=== PATIENT | male | born 1960 | race Two or more races ===

== ENCOUNTER → 2023-06-08 08:07 | Outpatient (REF) | payer OTHER, SELFPAY | LOC: DHCBC/DCA 08:07 | PROVIDERS: ATTENDING PHYSICIAN Internal Medicine Cardiovascular Disease; FAMILY PHYSICIAN Nurse Practitioner Family | DX: I25.10 Atherosclerotic heart disease of native coronary artery without angina pectoris (principal); R06.09 Other forms of dyspnea | CPT/HCPCS: 78452; 93017; A9500 ==

== ENCOUNTER → 2023-06-23 06:30 | Day surgery (SDC) | payer OTHER, SELFPAY | LOC: GI 06:30 | PROVIDERS: ATTENDING PHYSICIAN Internal Medicine Gastroenterology | DX: Z12.11 Encounter for screening for malignant neoplasm of colon (principal); D12.5 Benign neoplasm of sigmoid colon; K57.30 Diverticulosis of large intestine without perforation or abscess without bleeding; K64.8 Other hemorrhoids; Z86.010 Personal history of colon polyps | CPT/HCPCS: 45385; 88305 ==

== ENCOUNTER → 2024-03-07 13:01 | Day surgery (SDC) | payer MEDICARE, SELFPAY ==
[2024-03-07 15:22] LABS: Hematocrit 42.9 % (39.0-52.0); Mean Corpuscular Hgb 31.3 pg (27.0-31.0); Mean Corpuscular Volume 89.4 fL (80.0-94.0); Mean Platelet Volume 10.1 fL (7.4-10.4); Platelet Count 179 10^3/uL (130-400); Red Cell Dist. Width 11.9 % (11.5-14.5); White Blood Cell Count 12.9 10^3/uL (4.8-10.8)
[2024-03-07 16:40] LABS: ALT (SGPT) 42 U/L (0-50); AST (SGOT) 32 U/L (17-59); Albumin 4.8 g/dl (3.5-5.0); Alkaline Phosphatase 94 U/L (38-126); Blood Urea Nitrogen 20 mg/dl (9-20); Calcium 9.6 mg/dl (8.4-10.2); Carbon Dioxide 28 mmol/L (22-30); Chloride 98 mmol/L (98-107); Glucose 91 mg/dl (70-99); Potassium 4.5 mmol/L (3.5-5.1); Sodium 137 mmol/L (135-145); Total Bilirubin 1.4 mg/dl (0.2-1.3); eGFR > 60.00
== END ==
LOC: SDSPAT 13:01
PROVIDERS: ATTENDING PHYSICIAN Orthopaedic Surgery Orthopaedic Surgery of the Spine; FAMILY PHYSICIAN Nurse Practitioner Family; REFERRING PHYSICIAN Internal Medicine Cardiovascular Disease
DX: Z01.810 Encounter for preprocedural cardiovascular examination (principal); Z01.812 Encounter for preprocedural laboratory examination; Z01.818 Encounter for other preprocedural examination; R00.1 Bradycardia, unspecified
CPT/HCPCS: 93005; 36415; 80053; 85027; 87070

== ENCOUNTER 2024-03-20 06:21 | Day surgery (SDC) | payer MEDICARE, SELFPAY ==
[2024-03-07 13:39] VITALS: BMI 26.0
[2024-03-13 15:03] VITALS: BMI 26.0
[2024-03-20] VITALS (19 sets, daily range): BP systolic 40–144; BP diastolic 51–83; BMI 26.0
[2024-03-20] MEDS: NORMOSOL-R/PLASMALYTE-A 1000 IV ×3 (07:45→23:55)
[2024-03-20] MEDS: SKELAXIN 800 MG PO ×2 (08:00→17:08)
[2024-03-20] MEDS: CELEBREX 200 MG PO (08:01)
[2024-03-20] MEDS: TYLENOL 1000 MG PO ×2 (08:01→17:07)
[2024-03-20] MEDS: LYRICA 150 MG PO (08:01)
--- NOTE | 2024-03-20 12:13 | W.DS.TRANS ---
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
-
Discharge Instructions:
Sleep Apnea Risk Low
Discharge Diagnosis/Procedures L4-5 lami psf 03/20/24
Diet As tolerated
Activity No strenuous activity
Driving Restrictions No driving
Instructions:
Stand-Alone Forms: [facility]
Changes to Home Medications: Yes
Discharge Medications:
DC Medications w/original date entered in [employer]
aspirin 81 mg chewable tablet 81 mg PO DAILY 06/28/22
atorvastatin 40 mg tablet 40 mg PO HS 03/13/24
ezetimibe 10 mg tablet 10 mg PO DAILY 03/13/24
Saccharomyces boulardii 250 mg capsule (Florastor) 250 mg PO BID #1 cap 03/20/24
acetaminophen 325 mg tablet (Tylenol) 650 mg (2 x 325 mg) PO QID #1 tab 03/20/24
cephalexin 500 mg capsule 500 mg PO QID infection prevention #20 caps 03/20/24
dexamethasone 4 mg tablet 4 mg PO BID inflammation #6 tabs 03/20/24
docusate sodium 100 mg capsule (Colace) 100 mg PO BID stool softner #1 cap 03/20/24
gabapentin 300 mg capsule 300 mg PO HS sleep/pain #10 caps 03/20/24
magnesium hydroxide 400 mg/5 mL oral suspension (Milk of Magnesia) 30 ml PO HS PRN Constipation #1 mL 03/20/24
ondansetron 4 mg disintegrating tablet 4 mg PO Q6H PRN n/v #20 tabs 03/20/24
oxycodone 5 mg tablet 5 mg PO Q6H PRN 1 tab moderate pain, 2 tabs severe pain #30 tabs 03/20/24
ranolazine 500 mg tablet,extended release,12 hr 500 mg PO BID 03/20/24
sennosides 8.6 mg tablet (Senokot) 17.2 mg (2 x 8.6 mg) PO BID laxative #2 tabs 03/20/24
Home Medication Changes
cephalexin 500 mg capsule 500 mg PO QID infection prevention #20 caps 03/20/24
dexamethasone 4 mg tablet 4 mg PO BID inflammation #6 tabs 03/20/24
docusate sodium 100 mg capsule (Colace) 100 mg PO BID stool softner #1 cap 03/20/24
gabapentin 300 mg capsule 300 mg PO HS sleep/pain #10 caps 03/20/24
magnesium hydroxide 400 mg/5 mL oral suspension (Milk of Magnesia) 30 ml PO HS PRN Constipation #1 mL 03/20/24
ondansetron 4 mg disintegrating tablet 4 mg PO Q6H PRN n/v #20 tabs 03/20/24
oxycodone 5 mg tablet 5 mg PO Q6H PRN 1 tab moderate pain, 2 tabs severe pain #30 tabs 03/20/24
ranolazine 500 mg tablet,extended release,12 hr 500 mg PO BID 03/20/24
sennosides 8.6 mg tablet (Senokot) 17.2 mg (2 x 8.6 mg) PO BID laxative #2 tabs 03/20/24
Pending Results: No
[2024-03-20] MEDS: DILAUDID 0.5 MG IV ×2 (13:10→13:43)
[2024-03-20] MEDS: TYLENOL PO (16:17)
[2024-03-20] MEDS: ROXICODONE 5 MG PO (17:07)
--- NOTE | 2024-03-20 17:07 | PTCARENOTE ---
Patient admitted from [facility] L4-L5 laminectomy with instrumentation.The patient is alert and oriented.Vital signs are stable.The patient rates his pain at a 5 out of 10.The back dressing is intact with a small amount of shadowing.Neurovascular
assessment is within normal limits and ongoing.The patient is in his bed with the call patel in reach.
[2024-03-20] MEDS: ULTRAM 50 MG PO ×2 (17:08→20:15)
[2024-03-20] MEDS: ZETIA PO (17:08)
[2024-03-20] MEDS: ANCEF 5 IV (17:51)
[2024-03-20] MEDS: SENOKOT 17.2 MG PO (20:15)
[2024-03-20] MEDS: LYRICA 75 MG PO (20:15)
[2024-03-20] MEDS: COLACE 100 MG PO (20:15)
[2024-03-20] MEDS: RANEXA EXTENDED RELEASE PO (20:40)
[2024-03-20] MEDS: LIPITOR 40 MG PO (21:53)
[2024-03-20] MEDS: ZOFRAN 4 MG IV (22:05)
[2024-03-21] VITALS (8 sets, daily range): BP systolic 100–130; BP diastolic 55–74; PULSE 58–68; O2SAT 99–100
[2024-03-21] MEDS: TYLENOL 1000 MG PO ×3 (00:05→12:31)
[2024-03-21] MEDS: ULTRAM 50 MG PO ×4 (00:05→12:31)
[2024-03-21] MEDS: SKELAXIN 800 MG PO ×2 (00:05→07:25)
[2024-03-21] MEDS: ANCEF 5 IV (01:06)
[2024-03-21 06:44] LABS: Hematocrit 37.3 % (39.0-52.0)
[2024-03-21 07:14] LABS: Blood Urea Nitrogen 15 mg/dl (9-20); Calcium 8.1 mg/dl (8.4-10.2); Carbon Dioxide 28 mmol/L (22-30); Chloride 100 mmol/L (98-107); Estimated Creatinine Clearance 107 ml/min; Glucose 117 mg/dl (70-99); Potassium 4.4 mmol/L (3.5-5.1); Sodium 137 mmol/L (135-145); eGFR > 60.00
[2024-03-21] MEDS: ZETIA 10 MG PO (07:25)
[2024-03-21] MEDS: SENOKOT 17.2 MG PO (07:25)
[2024-03-21] MEDS: COLACE 100 MG PO (07:26)
[2024-03-21] MEDS: LYRICA 75 MG PO (07:26)
[2024-03-21] MEDS: RANEXA EXTENDED RELEASE 500 MG PO (07:26)
--- NOTE | 2024-03-21 07:55 | W.DS.TRANS ---
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
-
Discharge Instructions:
Sleep Apnea Risk Low
Discharge Diagnosis/Procedures L4-5 lami psf 03/20/24
Diet As tolerated
Activity No strenuous activity
Driving Restrictions No driving
Instructions:
Stand-Alone Forms: [facility]
Changes to Home Medications: No
Discharge Medications:
DC Medications w/original date entered in [employer]
aspirin 81 mg chewable tablet 81 mg PO DAILY 06/28/22
atorvastatin 40 mg tablet 40 mg PO HS 03/13/24
ezetimibe 10 mg tablet 10 mg PO DAILY 03/13/24
Saccharomyces boulardii 250 mg capsule (Florastor) 250 mg PO BID #1 cap 03/20/24
acetaminophen 325 mg tablet (Tylenol) 650 mg (2 x 325 mg) PO QID #1 tab 03/20/24
cephalexin 500 mg capsule 500 mg PO QID infection prevention #20 caps 03/20/24
dexamethasone 4 mg tablet 4 mg PO BID inflammation #6 tabs 03/20/24
docusate sodium 100 mg capsule (Colace) 100 mg PO BID stool softner #1 cap 03/20/24
gabapentin 300 mg capsule 300 mg PO HS sleep/pain #10 caps 03/20/24
magnesium hydroxide 400 mg/5 mL oral suspension (Milk of Magnesia) 30 ml PO HS PRN Constipation #1 mL 03/20/24
ondansetron 4 mg disintegrating tablet 4 mg PO Q6H PRN n/v #20 tabs 03/20/24
oxycodone 5 mg tablet 5 mg PO Q6H PRN 1 tab moderate pain, 2 tabs severe pain #30 tabs 03/20/24
ranolazine 500 mg tablet,extended release,12 hr 500 mg PO BID 03/20/24
sennosides 8.6 mg tablet (Senokot) 17.2 mg (2 x 8.6 mg) PO BID laxative #2 tabs 03/20/24
Home Medication Changes
Pending Results: No
--- NOTE | 2024-03-21 10:26 | W.PN.ORTHO ---
Today's Communication / Plan
-
d/c when stable
Assessment
.
Distal Motor Intact: Yes
Dressing:
Clean, dry and intact.
Assessment:
Nausea with dizziness when he stood--suspect vasovagal due to orthostasis--+ Midodrine, IVF bolus and check orthostatics
Plan
.
Surgery / Date: L4-5 decompression and fusion.
Activity:
Out of bed.
PT/OT
Discharge Plan: Home
Subjective
.
.:
Patient resting comfortably.
Vital Signs and Labs
.
Vital Signs and Labs:
Lab Results
03/21/24 06:28
03/21/24 06:28
Temp Pulse Resp BP Pulse Ox
98.1 F 63 16 120/71 96
03/21/24 07:05 03/21/24 07:05 03/21/24 07:05 03/21/24 07:05 03/21/24 09:25
Physical Exam
-
HEENT: No pallor, cyanosis, or jaundice. Throat clear.
NECK: Supple. No JVD.
RESPIRATORY: Lungs clear to auscultation.
CVS: S1, S2 normal. RRR.� No murmur, rub or gallop.
ABDOMEN: Soft, non-tender. No distension. BS+/normal.
EXTREMITIES: strength equal, no calf pain with palpation
RN HYPERBARIC: AOx3. No focal deficits. 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
--- NOTE | 2024-03-21 10:41 | CM ---
CM following re: discharge planning.
Reviewed pt's chart, met with pt and pt's spouse at bedside.
Pt is a 63 year old male, admitted with SDC status and primary dx of POD # 1 L4-5 decompression and fusion.
Pt reports he lives with spouse 2SH, 2 steps to enter, has 2 supportive children. 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
Discharge order noted. Pt is aware, expressed his agreement. Pt declined after care VN services and he stated his spouse is his caregiver if needed.
PCP: Deneen Ivan
Pharmacy: [facility].
D/C plan: home no needs. Spouse to transport.
[2024-03-21] MEDS: NORMOSOL-R/PLASMALYTE-A 500 IV (10:42)
[2024-03-21] MEDS: NORMOSOL-R/PLASMALYTE-A IV (12:30)
== END 2024-03-21 16:30 | disposition home or self-care (01) ==
LOC: SDS 06:21
PROVIDERS: Physician Assistant Medical; ATTENDING PHYSICIAN Orthopaedic Surgery Orthopaedic Surgery of the Spine
DX: M48.062 Spinal stenosis, lumbar region with neurogenic claudication (principal); M43.16 Spondylolisthesis, lumbar region
CPT/HCPCS: 22612; 63047; 20930; 22840; 72100; 76000; 80048; 85014; 85018; 97162; 97166; C1713; C1729; C1776